=== PATIENT | female | born 1960 | race Caucasian/White ===

== ENCOUNTER 2020-01-30 12:55 | Outpatient (CLI) | payer BC ==
[2020-01-30] MEDS ORDERED: Iopamidol-370 76% 500 ML 1 ML ONE (12:57)
--- NOTE | 2020-01-30 17:02 | CT ---
CT ABDOMEN AND PELVIS WITH AND WITHOUT IV CONTRAST: 01/30/20 HISTORY: Microscopic hematuria. COMPARISON: 09/05/14. FINDINGS: The lung bases are clear. The patient is post cholecystectomy. The liver, spleen, pancreas, and adren al glands are normal. No free air, free fluid or lymphadenopathy is seen in the abdomen or pelvis. No calculi are noted in the kidneys, ureters or the urinary bladder. No hydroureteronephrosis is seen on either side. Postcontrast images demonstrate no evidence of an enhancing renal mass. A tiny low density lesion in the left posterior renal cortex is too small to characterize and statistically like ly represents tiny cyst. There is normal contrast excretion into the ureter and urinary bladder. There are vascular calcifications without evidence of aneurysmal dilatation of the abdominal aorta. There is colonic diverticulosis without diverticulitis. A normal appearing appendix is present. A fib roid uterus is again seen. There are degenerative changes in the spine. IMPRESSION: 1. No CT evidence of urinary tract calculi, obstruction, or suspicious renal mass. 2. Uterine fibroids. 3. Colonic diverticulosis. POS: AH
== END 2020-01-30 12:56 | disposition home or self-care (01) ==
LOC: BICCT 12:55
PROVIDERS: ATTEND Family Medicine Sports Medicine
DX: R31.29 Other microscopic hematuria (principal); R10.9 Unspecified abdominal pain; D25.9 Leiomyoma of uterus, unspecified; K57.30 Diverticulosis of large intestine without perforation or abscess without bleeding
CPT/HCPCS: 74178; Q9967

== ENCOUNTER 2024-05-21 06:08 | Day surgery (SDC) | payer MEDICARE ==
[2024-05-20 11:51] VITALS: BMI 43.5
[~2024-05-21 06:08] MED LIST: EPINEPHrine 0.3 MG in Ophthalmic Irrigation Solution 500 ML IRR SCH
[2024-05-21] MEDS ORDERED: PHENYLephrine 2.5% Ophth Soln 15 ml Bottle ONE (06:33)
[2024-05-21] MEDS ORDERED: Cyclopentolate 1% Opth Drop 2 ML BOT ONE (06:33)
[2024-05-21] MEDS ORDERED: Midazolam HCl 2 mg/2 ml Vial ONE (08:18)
[2024-05-21] MEDS ORDERED: fentaNYL 50 mcg/mL 1 mL Vial ONE ×2 (08:18→08:38)
[2024-05-21] MEDS ORDERED: PROPOFOL 200 MG/20 ML VIAL ONE (08:31)
[2024-05-21] MEDS ORDERED: Bupivacaine 0.75% 10 ML VIAL ONE (08:31)
[2024-05-21] MEDS ORDERED: Lidocaine 1% PF 5 ML VIAL ONE (08:31)
[2024-05-21] MEDS ORDERED: Indocyanine Green 25 MG/10 ML VIAL ONE (08:31)
[2024-05-21] MEDS ORDERED: Triamcinolone 40 MG/ML VIAL ONE (08:31)
[2024-05-21] MEDS ORDERED: Maxitrol 0.1% Opth Oint 3.5 GM TUBE ONE (08:31)
[2024-05-21] MEDS ORDERED: Lidocaine 4% PF 5 ML AMP ONE (08:31)
[2024-05-21] MEDS ORDERED: CEFAZOLIN 1 GM VIAL ONE (08:31)
== END 2024-05-21 10:00 | disposition home or self-care (01) ==
LOC: SDC 06:08
PROVIDERS: ATTEND Ophthalmology Retina Specialist
PROC: 08T43ZZ Resection of Right Vitreous, Percutaneous Approach (ICD-10-PCS; principal; 2024-05-21)
DX: H35.371 Puckering of macula, right eye (principal); I10 Essential (primary) hypertension; J30.2 Other seasonal allergic rhinitis; R73.09 Other abnormal glucose; E66.01 Morbid (severe) obesity due to excess calories; H54.7 Unspecified visual loss; Q15.9 Congenital malformation of eye, unspecified; K21.9 Gastro-esophageal reflux disease without esophagitis; Z79.899 Other long term (current) drug therapy; Z78.0 Asymptomatic menopausal state; Z90.49 Acquired absence of other specified parts of digestive tract; Z98.890 Other specified postprocedural states; Z91.040 Latex allergy status
CPT/HCPCS: 67041; J0171; J0690; J2250; J2704; J3010; J3301; J3490